=== PATIENT | male | born 1990 | race Two or more races ===

== ENCOUNTER 2021-08-29 19:55 | Emergency (ER) | payer MEDICAID, OTHER ==
[~2021-08-29] VITALS: Ht 177.8 cm; Wt 108.9 kg
[2021-08-29 20:41] VITALS: BP 143/80
[2021-08-30] MEDS ORDERED: DexAMETHasone SOD PHOS 10MG/1ML VIAL INJ PO ONE (02:15)
[2021-08-30] MEDS ORDERED: cefTRIAXone SOD 1,000 MG VL IM ONE (02:15)
[2021-08-30] MEDS ORDERED: AMOX-277 PO (02:15)
[2021-08-30] MEDS ORDERED: KETOROLAC TROMETH 60MG/2ML VIAL IM ONE (02:15)
== END 2021-08-30 02:36 | disposition home or self-care (01) ==
LOC: ER 19:55
DX: J02.9 Acute pharyngitis, unspecified (principal); R50.9 Fever, unspecified
CPT/HCPCS: 96372; 99284; J0696; J1100; J1885